=== PATIENT | male | born 1965 | race Caucasian/White ===

== ENCOUNTER 2020-02-25 10:14 | Emergency (ER) | payer SELFPAY ==
[2020-02-25 10:54] LABS: HEMOGLOBIN 14.1 g/dl (14.0-18.0); IMMATURE GRANULOCYTES 0.2 % (0.0-5.0); MEAN CELL VOLUME 99.8 fL CALC (80.0-100.0); MEAN CORPUSCULAR HGB 34.3 pG CALC (26.0-32.0); MEAN CORPUSCULAR HGB CONC 34.4 g/dL CAL (32.0-36.0); NEUT# 3.25 thou/uL (1.82-7.42); RED BLOOD COUNT 4.11 mill/uL (4.70-6.10); RED CELL DISTRI WIDTH 14.6 % (11.5-15.5)
[2020-02-25 11:13] LABS: ALBUMIN 4.2 g/dL (3.2-5.0); ALKALINE PHOSPHATASE 108 u/l (38-126); AMYLASE 62 u/l (30-110); ANION GAP 13 (6-22 (CALC)); BILIRUBIN, TOTAL 0.4 mg/dL (0.0-1.4); BUN 10 mg/dL (9-20); BUN/CREATININE RATIO 10 (12-20 (CALC)); CARBON DIOXIDE 20 mmol/l (22-30); CHLORIDE 108 mmol/l (95-108); CREATININE 0.9 mg/dL (0.7-1.3); GFR > 60 ML/MIN (>=60 (CALC)); GFR FOR AFR.AMER. > 60 ML/MIN (>=60 (CALC)); LIPASE 73 u/l (23-300); POTASSIUM 4.7 mmol/l (3.5-5.1); SGOT/AST 36 u/l (17-59); SODIUM 136 mmol/l (137-146); TOTAL PROTEIN 7.5 g/dL (6.3-8.2)
[2020-02-25] MEDS ORDERED: AMLODIPINE BESY10 MG PO (13:05)
[2020-02-25] MEDS ORDERED: PROVENTIL108 MCG/AC IN (13:05)
[2020-02-25 13:08] VITALS: BP 163/94
== END 2020-02-25 13:09 | disposition home or self-care (01) | DRG 392 ==
LOC: ED 10:14
DX: R10.11 Right upper quadrant pain (principal); J44.1 Chronic obstructive pulmonary disease with (acute) exacerbation; I10 Essential (primary) hypertension; T46.5X6A Underdosing of other antihypertensive drugs, initial encounter; F17.210 Nicotine dependence, cigarettes, uncomplicated; Z91.128 Patient's intentional underdosing of medication regimen for other reason; Z20.828 Contact with and (suspected) exposure to other viral communicable diseases
CPT/HCPCS: Q9967

== ENCOUNTER 2022-07-14 09:51 | Emergency (ER) | payer SELFPAY ==
[~2022-07-14] VITALS: Ht 175.3 cm; Wt 96.0 kg
[~2022-07-14 09:51] MED LIST: AMLODIPINE BESY10 MG PO; PROVENTIL108 MCG/AC IN
[2022-07-14] MEDS ORDERED: MOTRIN800 MG PO (12:02)
[2022-07-14] MEDS ORDERED: DOXYCYC MONO100 M3 PO (12:02)
[2022-07-14 12:16] VITALS: BP 136/84
== END 2022-07-14 12:20 | disposition home or self-care (01) | DRG 605 ==
LOC: ED 09:51
DX: S61.451A Open bite of right hand, initial encounter (principal); L03.113 Cellulitis of right upper limb; W55.01XA Bitten by cat, initial encounter

== ENCOUNTER 2023-02-25 14:55 | Emergency (ER) | payer SELFPAY ==
[2023-02-25] VITALS (8 sets, daily range): BP systolic 109–133; BP diastolic 69–96
[~2023-02-25] VITALS: Ht 175.3 cm; Wt 83.9 kg
[~2023-02-25 14:55] MED LIST changes: +DOXYCYC MONO100 M3 PO; +MOTRIN800 MG PO
[2023-02-25] MEDS ORDERED: VIBRAMYCIN100 M1 PO (21:44)
[2023-02-25] MEDS ORDERED: NAPROXEN500 MG PO (21:44)
== END 2023-02-25 17:12 | disposition left against medical advice (07) | DRG 556 ==
LOC: ED 14:55
DX: M25.562 Pain in left knee (principal); L03.114 Cellulitis of left upper limb; I10 Essential (primary) hypertension; J44.9 Chronic obstructive pulmonary disease, unspecified; F17.200 Nicotine dependence, unspecified, uncomplicated; Z53.29 Procedure and treatment not carried out because of patient's decision for other reasons

== ENCOUNTER 2023-02-25 21:03 | Emergency (ER) | payer SELFPAY ==
[~2023-02-25] VITALS: Ht 177.8 cm; Wt 97.0 kg
[2023-02-25] MEDS ORDERED: NAPROXEN500 MG PO (21:44)
[2023-02-25] MEDS ORDERED: VIBRAMYCIN100 M1 PO (21:44)
[2023-02-25 22:01] VITALS: BP 141/84
== END 2023-02-25 22:04 | disposition home or self-care (01) | DRG 556 ==
LOC: ED 21:03
DX: M25.562 Pain in left knee (principal); L03.114 Cellulitis of left upper limb; I10 Essential (primary) hypertension; J44.9 Chronic obstructive pulmonary disease, unspecified; F17.200 Nicotine dependence, unspecified, uncomplicated

== ENCOUNTER 2023-05-18 18:01 | Emergency (ER) | payer SELFPAY ==
[~2023-05-18] VITALS: Ht 177.8 cm; Wt 83.0 kg
[2023-05-18] VITALS (9 sets, daily range): BP systolic 88–127; BP diastolic 62–77
[~2023-05-18 18:01] MED LIST changes: +NAPROXEN500 MG PO; +VIBRAMYCIN100 M1 PO
[2023-05-18 18:19] LABS: BASO% 1.6 % (0-3); EOS% 0.6 % (0-8); HEMATOCRIT 41.4 % (39.0-50.0); HEMOGLOBIN 13.7 g/dl (14.0-18.0); IMMATURE GRANULOCYTES 0.1 % (0.0-5.0); LYMPH% 28.8 % (15-41); MEAN CORPUSCULAR HGB 36.8 pG CALC (26.0-32.0); MEAN CORPUSCULAR HGB CONC 33.1 g/dL CAL (32.0-36.0); NEUT# 4.28 thou/uL (1.82-7.42); NEUT% 60.9 % (42-76); RED BLOOD COUNT 3.72 mill/uL (4.70-6.10); RED CELL DISTRI WIDTH 14.3 % (11.5-15.5)
[2023-05-18 18:20] LABS: MEAN CELL VOLUME 111.3 fL CALC (80.0-100.0)
[2023-05-18 18:31] LABS: ALBUMIN 3.5 g/dL (3.2-5.0); POTASSIUM 4.6 mmol/l (3.5-5.1); TOTAL PROTEIN 6.5 g/dL (6.3-8.2)
[2023-05-18 18:32] LABS: BILIRUBIN, TOTAL 0.8 mg/dL (0.2-1.3); CREATININE 1.9 mg/dL (0.7-1.3)
== END 2023-05-18 19:50 | disposition left against medical advice (07) | DRG 312 ==
LOC: ED 18:01
PROVIDERS: Family Medicine
DX: R55 Syncope and collapse (principal); N17.9 Acute kidney failure, unspecified; F10.10 Alcohol abuse, uncomplicated; S00.81XA Abrasion of other part of head, initial encounter; I10 Essential (primary) hypertension; J44.9 Chronic obstructive pulmonary disease, unspecified; F17.210 Nicotine dependence, cigarettes, uncomplicated; Y90.7 Blood alcohol level of 200-239 mg/100 ml; W18.39XA Other fall on same level, initial encounter; Y92.009 Unspecified place in unspecified non-institutional (private) residence as the place of occurrence of the external cause; Z53.29 Procedure and treatment not carried out because of patient's decision for other reasons; Z20.822 Contact with and (suspected) exposure to COVID-19

== ENCOUNTER 2023-11-06 20:49 | Emergency (ER) | payer SELFPAY ==
[~2023-11-06] VITALS: Ht 177.8 cm; Wt 77.0 kg
[2023-11-06] VITALS (7 sets, daily range): BP systolic 69–114; BP diastolic 49–84
[~2023-11-06 20:49] MED LIST changes: +ALBUTERO2 XX; +FOLIC ACID1 M1 PO; +LEVAQUIN750 M1 PO; +MEDDOSEPAK PO; +PROTONIX40 M2 PO; +SYMBICORT1 AE1 IN; +TAB-A-VITE W/1 COMBO PO; +VITAMIN B-1100 M1 PO
[2023-11-06] MEDS ORDERED: SODIUM CHLORIDE 0.9% 1,000 ML IV ONE ×2 (21:35→23:15)
[2023-11-06 21:46] LABS: BASO% 1.4 % (0-3); EOS% 2.2 % (0-8); IMMATURE GRANULOCYTES 0.1 % (0.0-5.0); LYMPH% 58.4 % (15-41); MEAN CORPUSCULAR HGB 34.8 pG CALC (26.0-32.0); MEAN CORPUSCULAR HGB CONC 34.4 g/dL CAL (32.0-36.0); MONO% 9.1 % (2-13); NEUT# 2.21 thou/uL (1.82-7.42); NEUT% 28.8 % (42-76); RED BLOOD COUNT 4.17 mill/uL (4.70-6.10)
[2023-11-06 21:47] LABS: HEMATOCRIT 42.1 % (39.0-50.0); HEMOGLOBIN 14.5 g/dl (14.0-18.0)
[2023-11-06 21:53] LABS: ALBUMIN 3.6 g/dL (3.2-5.0); ANION GAP 15 (6-22 (CALC)); BILIRUBIN, TOTAL 0.3 mg/dL (0.2-1.3); BUN 9 mg/dL (9-20); BUN/CREATININE RATIO 7 (12-20 (CALC)); CARBON DIOXIDE 21 mmol/l (22-30); CHLORIDE 98 mmol/l (95-108); CREATININE 1.2 mg/dL (0.7-1.3); GFR FOR AFR.AMER. > 60 ML/MIN (>=60 (CALC)); GFR OTHER RACES > 60 ML/MIN (>=60 (CALC)); POTASSIUM 4.2 mmol/l (3.5-5.1); SGOT/AST 79 u/l (17-59); SODIUM 129 mmol/l (137-146); TOTAL PROTEIN 6.3 g/dL (6.3-8.2)
[2023-11-06 22:03] LABS: ALKALINE PHOSPHATASE 122 u/l (38-126)
[2023-11-06 22:10] LABS: URINE BILIRUBIN - DIPSTICK Negative (NEGATIVE); URINE BLOOD DIPSTICK Negative (NEGATIVE); URINE GLUCOSE - DIPSTICK Negative (NEGATIVE); URINE KETONE Negative (NEGATIVE); URINE LEUK ESTERASE Negative (NEGATIVE); URINE NITRITE - DIPSTICK Negative (Negative); URINE PH 5.5 (4.5-8.0); URINE PROTEIN - DIPSTICK Negative (NEG-TRACE); URINE SPECIFIC GRAVITY <=1.005; URINE UROBILINOGEN - DIPSTICK 0.2 E.U./dL (0.2)
[2023-11-06 22:14] LABS: URINE COLOR Yellow
[2023-11-06 22:28] LABS: D-DIMER 0.55 mg/L (0.19-0.60)
[2023-11-06 22:29] LABS: PROTHROMBIN TIME 9.4 SECONDS (9.0-12.5)
[2023-11-06] MEDS ORDERED: THIAMINE HCL 100 MG/ML 2ML VIAL IM ONE (23:15)
[2023-11-07] VITALS (12 sets, daily range): BP systolic 105–137; BP diastolic 53–81
[2023-11-07] MEDS ORDERED: SODIUM CHLORIDE 0.9% 1,000 ML IV ONE (02:30)
== END 2023-11-07 11:56 | disposition home or self-care (01) | DRG 897 ==
LOC: ED 20:49
PROVIDERS: Family Medicine
DX: F10.229 Alcohol dependence with intoxication, unspecified (principal); Y90.8 Blood alcohol level of 240 mg/100 ml or more; I10 Essential (primary) hypertension; E11.9 Type 2 diabetes mellitus without complications; J44.9 Chronic obstructive pulmonary disease, unspecified

== ENCOUNTER 2024-06-01 16:55 | Emergency (ER) | payer SELFPAY ==
[~2024-06-01] VITALS: Ht 177.8 cm; Wt 163.0 kg
[2024-06-01 17:02] VITALS: BP 125/91
[2024-06-01] MEDS ORDERED: IPRATROPIUM-Albuterol 0.5MG-2.5MG/3 ML NEB ONE (17:05)
[2024-06-01] MEDS ORDERED: SODIUM CHLORIDE 0.9% 1,000 ML IV ONE (17:05)
[2024-06-01 17:16] LABS: BASO% 1.9 % (0-3); EOS% 1.3 % (0-8); HEMATOCRIT 37.7 % (39.0-50.0); HEMOGLOBIN 12.5 g/dl (14.0-18.0); IMMATURE GRANULOCYTES 0.1 % (0.0-5.0); LYMPH% 46.5 % (15-41); MEAN CELL VOLUME 107.4 fL CALC (80.0-100.0); MEAN CORPUSCULAR HGB 35.6 pG CALC (26.0-32.0); MEAN CORPUSCULAR HGB CONC 33.2 g/dL CAL (32.0-36.0); MONO% 5.3 % (2-13); NEUT# 3.72 thou/uL (1.82-7.42); NEUT% 44.9 % (42-76); RED BLOOD COUNT 3.51 mill/uL (4.70-6.10); RED CELL DISTRI WIDTH 15.1 % (11.5-15.5)
[2024-06-01 17:27] LABS: ALBUMIN 3.8 g/dL (3.2-5.0); BILIRUBIN, TOTAL 0.3 mg/dL (0.2-1.3); POTASSIUM 4.7 mmol/l (3.5-5.1); TOTAL PROTEIN 6.8 g/dL (6.3-8.2)
[2024-06-01 17:31] VITALS: BP 125/91
== END 2024-06-01 17:20 | disposition left against medical advice (07) | DRG 894 ==
LOC: ED 16:55
PROVIDERS: Nurse Practitioner Family
DX: F10.10 Alcohol abuse, uncomplicated (principal); I10 Essential (primary) hypertension; J44.9 Chronic obstructive pulmonary disease, unspecified; E11.9 Type 2 diabetes mellitus without complications; F17.200 Nicotine dependence, unspecified, uncomplicated; Z53.29 Procedure and treatment not carried out because of patient's decision for other reasons

== ENCOUNTER 2024-08-14 18:07 | Emergency (ER) | payer SELFPAY ==
[~2024-08-14] VITALS: Ht 177.8 cm; Wt 87.0 kg
[2024-08-14] VITALS (7 sets, daily range): BP systolic 81–109; BP diastolic 55–78
[2024-08-14] MEDS ORDERED: IPRATROPIUM-Albuterol 0.5MG-2.5MG/3 ML NEB ONE ×2 (18:15)
[2024-08-14] MEDS ORDERED: methylPREDNISolone SODIUM SUCC 125 MG/2 ML SDV IV ONE (18:15)
[2024-08-14 19:00] LABS: BASO% 1.9 % (0-3); EOS% 1.4 % (0-8); HEMATOCRIT 33.9 % (39.0-50.0); HEMOGLOBIN 11.6 g/dl (14.0-18.0); IMMATURE GRANULOCYTES 0.2 % (0.0-5.0); LYMPH% 62.9 % (15-41); MEAN CELL VOLUME 103.4 fL CALC (80.0-100.0); MEAN CORPUSCULAR HGB 35.4 pG CALC (26.0-32.0); MEAN CORPUSCULAR HGB CONC 34.2 g/dL CAL (32.0-36.0); MONO% 7.6 % (2-13); NEUT# 1.48 thou/uL (1.82-7.42); RED BLOOD COUNT 3.28 mill/uL (4.70-6.10); RED CELL DISTRI WIDTH 13.2 % (11.5-15.5)
[2024-08-14 19:03] LABS: URINE BILIRUBIN - DIPSTICK Negative (NEGATIVE); URINE BLOOD DIPSTICK Negative (NEGATIVE); URINE GLUCOSE - DIPSTICK Negative (NEGATIVE); URINE KETONE Negative (NEGATIVE); URINE LEUK ESTERASE Negative (NEGATIVE); URINE NITRITE - DIPSTICK Negative (Negative); URINE PROTEIN - DIPSTICK Negative (NEG-TRACE); URINE UROBILINOGEN - DIPSTICK 0.2 E.U./dL (0.2)
[2024-08-14 19:04] LABS: URINE COLOR Yellow
[2024-08-14 19:14] LABS: ALBUMIN 3.6 g/dL (3.2-5.0); BILIRUBIN, TOTAL 0.4 mg/dL (0.2-1.3); CREATININE 0.9 mg/dL (0.7-1.3); POTASSIUM 3.9 mmol/l (3.5-5.1); TOTAL PROTEIN 6.8 g/dL (6.3-8.2)
[2024-08-14] MEDS ORDERED: MULTIPLE VITAMIN 10 ML,THIAMINE HCL 100 MG in SODIUM CHLORIDE 0.9% 1,000 ML IV ONE (19:55)
[2024-08-14] MEDS ORDERED: AZITHROMYCIN 250 MG/TAB PO ONE (19:55)
[2024-08-14] MEDS ORDERED: ALBUTEROL SULFATE 8 GM INH IN ONE (19:55)
[2024-08-14] MEDS ORDERED: PREDNISONE20 MG PO (19:56)
[2024-08-14] MEDS ORDERED: ZPAK PO (20:17)
== END 2024-08-14 22:20 | disposition home or self-care (01) | DRG 191 ==
LOC: ED 18:07
PROVIDERS: Nurse Practitioner
DX: J44.1 Chronic obstructive pulmonary disease with (acute) exacerbation (principal); Z59.00 Homelessness unspecified; I10 Essential (primary) hypertension; E11.9 Type 2 diabetes mellitus without complications; F17.200 Nicotine dependence, unspecified, uncomplicated; F10.129 Alcohol abuse with intoxication, unspecified; Y90.8 Blood alcohol level of 240 mg/100 ml or more

== ENCOUNTER 2024-10-21 16:39 | Emergency (ER) | payer SELFPAY ==
[~2024-10-21] VITALS: Ht 177.8 cm; Wt 73.0 kg
[2024-10-21] VITALS (18 sets, daily range): BP systolic 84–126; BP diastolic 45–89
[~2024-10-21 16:39] MED LIST changes: +PREDNISONE20 MG PO; +ZPAK PO
[2024-10-21] MEDS ORDERED: methylPREDNISolone SODIUM SUCC 125 MG/2 ML SDV IV ONE (16:45)
[2024-10-21] MEDS ORDERED: IPRATROPIUM-Albuterol 0.5MG-2.5MG/3 ML NEB ONE (16:45)
[2024-10-21] MEDS ORDERED: SODIUM CHLORIDE 0.9% 1,000 ML IV ONE ×2 (16:55→19:55)
[2024-10-21 17:02] LABS: BASO% 2.2 % (0-3); EOS% 2.4 % (0-8); HEMATOCRIT 34.4 % (39.0-50.0); HEMOGLOBIN 11.4 g/dl (14.0-18.0); IMMATURE GRANULOCYTES 0.1 % (0.0-5.0); LYMPH% 41.9 % (15-41); MEAN CELL VOLUME 105.8 fL CALC (80.0-100.0); MEAN CORPUSCULAR HGB 35.1 pG CALC (26.0-32.0); MEAN CORPUSCULAR HGB CONC 33.1 g/dL CAL (32.0-36.0); MONO% 5.5 % (2-13); NEUT# 4.06 thou/uL (1.82-7.42); NEUT% 47.9 % (42-76); RED BLOOD COUNT 3.25 mill/uL (4.70-6.10)
[2024-10-21 17:19] LABS: ALBUMIN 3.4 g/dL (3.2-5.0); ALKALINE PHOSPHATASE 141 u/l (38-126); BUN 6 mg/dL (9-20); BUN/CREATININE RATIO 7 (12-20 (CALC)); CHLORIDE 105 mmol/l (95-108); CREATININE 0.9 mg/dL (0.7-1.3); ESTIMATED GFR 99 ML/MIN (>=90 (CALC)); POTASSIUM 4.2 mmol/l (3.5-5.1); SGOT/AST 46 u/l (17-59); SODIUM 132 mmol/l (137-146); TOTAL PROTEIN 6.6 g/dL (6.3-8.2)
[2024-10-21 17:21] LABS: URINE BLOOD DIPSTICK Negative (NEGATIVE); URINE GLUCOSE - DIPSTICK Negative (NEGATIVE); URINE KETONE Trace mg/dL (NEGATIVE); URINE LEUK ESTERASE Negative (NEGATIVE); URINE PH 5.5 (4.5-8.0); URINE PROTEIN - DIPSTICK Negative (NEG-TRACE)
[2024-10-21 17:23] LABS: URINE COLOR Amber; URINE NITRITE - DIPSTICK Positive (Negative)
[2024-10-21 17:28] LABS: URINE HYALINE CAST MANY lpf (NONE-RARE); URINE RBC 0-2 RBC/hpf (0-5); URINE TRANSITIONAL EPI. CELLS FEW hpf; URINE WBC 0-2 WBC/hpf (0-5)
[2024-10-21 17:29] LABS: ANION GAP 14 (6-22 (CALC)); BILIRUBIN, TOTAL 0.8 mg/dL (0.2-1.3); CARBON DIOXIDE 17 mmol/l (22-30)
[2024-10-21 17:30] LABS: ETHYL ALCOHOL 307 mg/dl (0-30)
[2024-10-21] MEDS ORDERED: KETOROLAC TROMETHAMINE 15 MG/ML SDV IV ONE (18:25)
[2024-10-21] MEDS ORDERED: ORPHENADRINE CITRATE 30 MG/ML AMP IV ONE (18:25)
[2024-10-21] MEDS ORDERED: AZITHROMYCIN 250 MG/TAB PO ONE (20:10)
[2024-10-21] MEDS ORDERED: MORPHINE SULFATE 4 MG/ML VIAL IV ONE (21:05)
[2024-10-22] VITALS (10 sets, daily range): BP systolic 125–153; BP diastolic 87–116
== END 2024-10-22 02:12 | disposition home or self-care (01) | DRG 191 ==
LOC: ED 16:39
PROVIDERS: Nurse Practitioner
DX: J44.1 Chronic obstructive pulmonary disease with (acute) exacerbation (principal); F10.229 Alcohol dependence with intoxication, unspecified; Y90.8 Blood alcohol level of 240 mg/100 ml or more; I10 Essential (primary) hypertension; E11.9 Type 2 diabetes mellitus without complications; Z72.0 Tobacco use; Z20.822 Contact with and (suspected) exposure to COVID-19; Z59.00 Homelessness unspecified
CPT/HCPCS: J1885; J2360

== ENCOUNTER 2024-11-15 19:02 | Emergency (ER) | payer SELFPAY ==
[~2024-11-15] VITALS: Ht 177.8 cm; Wt 75.0 kg
[2024-11-15] VITALS (12 sets, daily range): BP systolic 78–108; BP diastolic 43–67
[2024-11-15] MEDS ORDERED: KETOROLAC TROMETHAMINE 30 MG/ML SDV IV ONE (19:15)
[2024-11-15] MEDS ORDERED: IPRATROPIUM-Albuterol 0.5MG-2.5MG/3 ML NEB ONE (19:15)
[2024-11-15] MEDS ORDERED: ASPIRIN 81 MG/TAB PO ONE (19:15)
[2024-11-15] MEDS ORDERED: methylPREDNISolone SODIUM SUCC 125 MG/2 ML SDV IV ONE (19:15)
[2024-11-15] MEDS ORDERED: SODIUM CHLORIDE 0.9% 1,000 ML IV ONE (19:20)
[2024-11-15 19:35] LABS: BASO% 2.1 % (0-3); EOS% 1.9 % (0-8); HEMATOCRIT 32.1 % (39.0-50.0); HEMOGLOBIN 10.8 g/dl (14.0-18.0); MEAN CELL VOLUME 105.9 fL CALC (80.0-100.0); MEAN CORPUSCULAR HGB 35.6 pG CALC (26.0-32.0); MEAN CORPUSCULAR HGB CONC 33.6 g/dL CAL (32.0-36.0); MONO% 5.9 % (2-13); NEUT# 1.43 thou/uL (1.82-7.42); NEUT% 27.1 % (42-76); RED BLOOD COUNT 3.03 mill/uL (4.70-6.10); RED CELL DISTRI WIDTH 14.6 % (11.5-15.5)
[2024-11-15 19:48] LABS: ALKALINE PHOSPHATASE 155 u/l (38-126); ANION GAP 16 (6-22 (CALC)); BUN 11 mg/dL (9-20); BUN/CREATININE RATIO 10 (12-20 (CALC)); CARBON DIOXIDE 20 mmol/l (22-30); CHLORIDE 103 mmol/l (95-108); ESTIMATED GFR 87 ML/MIN (>=90 (CALC)); LIPASE 141 u/l (23-300); POTASSIUM 3.9 mmol/l (3.5-5.1); SODIUM 135 mmol/l (137-146); TOTAL PROTEIN 5.9 g/dL (6.3-8.2)
[2024-11-15 19:49] LABS: BILIRUBIN, TOTAL 0.4 mg/dL (0.2-1.3); SGOT/AST 105 u/l (17-59)
[2024-11-15] MEDS ORDERED: MULTIPLE VITAMIN 10 ML,THIAMINE HCL 100 MG in DEXTROSE 5% / 0.9% NACL 1,000 ML IV ONE (21:20)
[2024-11-15] MEDS ORDERED: LACTATED RINGER'S 1,000 ML IV ONE (23:20)
[2024-11-15] MEDS ORDERED: MULTIPLE VITAMIN IV ONE (23:48)
[2024-11-15] MEDS ORDERED: THIAMINE HCL 100 MG/ML 2ML VIAL ONE (23:48)
[2024-11-16] VITALS (17 sets, daily range): BP systolic 94–146; BP diastolic 61–99
[2024-11-16] MEDS ORDERED: SODIUM CHLORIDE 0.9% 1,000 ML IV ONE (00:27)
[2024-11-16] MEDS ORDERED: LACTATED RINGER'S 1,000 ML IV ONE (04:05)
[2024-11-16] MEDS ORDERED: Pantoprazole Sodium 40 MG VIAL (Protonix) IV ONE (07:15)
[2024-11-16] MEDS ORDERED: OMEPRAZOLE DR40 MG PO (08:33)
== END 2024-11-16 08:40 | disposition home or self-care (01) | DRG 190 ==
LOC: ED 19:02
PROVIDERS: Family Medicine
DX: J44.1 Chronic obstructive pulmonary disease with (acute) exacerbation (principal); J12.9 Viral pneumonia, unspecified; J44.0 Chronic obstructive pulmonary disease with (acute) lower respiratory infection; F10.129 Alcohol abuse with intoxication, unspecified; Y90.8 Blood alcohol level of 240 mg/100 ml or more; I10 Essential (primary) hypertension; E11.9 Type 2 diabetes mellitus without complications; Z72.0 Tobacco use; Z20.822 Contact with and (suspected) exposure to COVID-19
CPT/HCPCS: J2470; J3411

== ENCOUNTER 2024-11-19 14:39 | Emergency (ER) | payer SELFPAY ==
[~2024-11-19] VITALS: Ht 177.8 cm; Wt 74.0 kg
[~2024-11-19 14:39] MED LIST changes: +OMEPRAZOLE DR40 MG PO
[2024-11-19 14:48] VITALS: BP 113/58
[2024-11-19 15:00] VITALS: BP 113/67
[2024-11-19] MEDS ORDERED: IPRATROPIUM-Albuterol 0.5MG-2.5MG/3 ML NEB ONE ×3 (15:00)
[2024-11-19] MEDS ORDERED: methylPREDNISolone SODIUM SUCC 125 MG/2 ML SDV IV ONE (15:00)
[2024-11-19 15:15] VITALS: BP 103/60
[2024-11-19 15:22] LABS: BASO% 1.4 % (0-3); EOS% 0.8 % (0-8); HEMATOCRIT 33.8 % (39.0-50.0); HEMOGLOBIN 11.5 g/dl (14.0-18.0); IMMATURE GRANULOCYTES 0.2 % (0.0-5.0); LYMPH% 52.3 % (15-41); MEAN CELL VOLUME 105.3 fL CALC (80.0-100.0); MEAN CORPUSCULAR HGB 35.8 pG CALC (26.0-32.0); MONO% 6.5 % (2-13); NEUT# 1.91 thou/uL (1.82-7.42); NEUT% 38.8 % (42-76); RED BLOOD COUNT 3.21 mill/uL (4.70-6.10); RED CELL DISTRI WIDTH 15.4 % (11.5-15.5)
[2024-11-19 15:36] LABS: ALBUMIN 3.2 g/dL (3.2-5.0); ALKALINE PHOSPHATASE 163 u/l (38-126); BUN 9 mg/dL (9-20); BUN/CREATININE RATIO 12 (12-20 (CALC)); CHLORIDE 103 mmol/l (95-108); CREATININE 0.8 mg/dL (0.7-1.3); ESTIMATED GFR 103 ML/MIN (>=90 (CALC)); POTASSIUM 3.9 mmol/l (3.5-5.1); SGOT/AST 163 u/l (17-59); SODIUM 136 mmol/l (137-146)
[2024-11-19 15:37] LABS: ANION GAP 12 (6-22 (CALC)); BILIRUBIN, TOTAL 0.9 mg/dL (0.2-1.3); CARBON DIOXIDE 25 mmol/l (22-30)
[2024-11-19] MEDS ORDERED: ALUM & MAG HYDROX-SIMETHICONE 30 ML PO ONE (16:35)
[2024-11-19] MEDS ORDERED: LIDOCAINE VISCOUS 2% 15 ML UDC PO ONE (16:35)
[2024-11-19] MEDS ORDERED: FAMOTIDINE 10MG/ML 2ML SDV IV ONE (16:35)
[2024-11-19] MEDS ORDERED: Pantoprazole Sodium 40 MG VIAL (Protonix) IV ONE (16:35)
[2024-11-19] MEDS ORDERED: PEPCID20 MG PO (17:35)
[2024-11-19 17:57] VITALS: BP 103/60
== END 2024-11-19 18:01 | disposition home or self-care (01) | DRG 392 ==
LOC: ED 14:39
PROVIDERS: Nurse Practitioner
DX: K29.70 Gastritis, unspecified, without bleeding (principal); K21.9 Gastro-esophageal reflux disease without esophagitis; I10 Essential (primary) hypertension; E11.9 Type 2 diabetes mellitus without complications; J44.9 Chronic obstructive pulmonary disease, unspecified; F17.210 Nicotine dependence, cigarettes, uncomplicated; Z20.822 Contact with and (suspected) exposure to COVID-19
CPT/HCPCS: J2470

== ENCOUNTER 2024-11-26 20:39 | Emergency (ER) | payer SELFPAY ==
[~2024-11-26] VITALS: Ht 177.8 cm; Wt 81.0 kg
[~2024-11-26 20:39] MED LIST changes: +PEPCID20 MG PO
[2024-11-26] MEDS ORDERED: SUCRALFATE 1 GM/TAB PO ONE (20:55)
[2024-11-26] MEDS ORDERED: FAMOTIDINE 20 MG/TAB PO ONE (20:55)
[2024-11-26] MEDS ORDERED: ASPIRIN 81 MG/TAB PO ONE (20:55)
[2024-11-26] MEDS ORDERED: NITROGLYCERIN 2% OINT UD 1 GM/PAK TD ONE (20:55)
[2024-11-26 21:00] VITALS: BP 86/63
[2024-11-26 21:08] VITALS: BP 108/69
[2024-11-26 21:21] LABS: BASO% 1.4 % (0-3); EOS% 0.5 % (0-8); HEMATOCRIT 30.4 % (39.0-50.0); HEMOGLOBIN 10.3 g/dl (14.0-18.0); IMMATURE GRANULOCYTES 0.1 % (0.0-5.0); LYMPH% 52.4 % (15-41); MEAN CELL VOLUME 107.4 fL CALC (80.0-100.0); MEAN CORPUSCULAR HGB 36.4 pG CALC (26.0-32.0); MEAN CORPUSCULAR HGB CONC 33.9 g/dL CAL (32.0-36.0); MONO% 7.4 % (2-13); NEUT# 3.06 thou/uL (1.82-7.42); NEUT% 38.2 % (42-76); RED BLOOD COUNT 2.83 mill/uL (4.70-6.10); RED CELL DISTRI WIDTH 16.7 % (11.5-15.5)
[2024-11-26 21:32] LABS: ALBUMIN 2.9 g/dL (3.2-5.0); ALKALINE PHOSPHATASE 208 u/l (38-126); ANION GAP 14 (6-22 (CALC)); BUN 14 mg/dL (9-20); BUN/CREATININE RATIO 9 (12-20 (CALC)); CARBON DIOXIDE 22 mmol/l (22-30); CHLORIDE 110 mmol/l (95-108); CPK 69 u/l (55-170); CREATININE 1.5 mg/dL (0.7-1.3); ESTIMATED GFR 54 ML/MIN (>=90 (CALC)); LIPASE 381 u/l (23-300); MAGNESIUM 1.9 mg/dL (1.6-2.3); POTASSIUM 3.8 mmol/l (3.5-5.1); SGOT/AST 142 u/l (17-59); SODIUM 142 mmol/l (137-146); TOTAL PROTEIN 5.7 g/dL (6.3-8.2)
[2024-11-26 21:38] LABS: ACT PARTIAL THROMBO TIME 24.4 SECONDS (20.0-32.5); D-DIMER 1.46 mg/L (0.19-0.60)
[2024-11-26 21:40] LABS: BILIRUBIN, TOTAL 0.4 mg/dL (0.2-1.3)
[2024-11-26 21:41] LABS: ETHYL ALCOHOL 404 mg/dl (0-30)
[2024-11-26 22:02] LABS: TSH, 3RD GENERATION 5.96 uIU/mL (0.47 - 4.68)
[2024-11-26 22:45] LABS: URINE BLOOD DIPSTICK Negative (NEGATIVE); URINE GLUCOSE - DIPSTICK Negative (NEGATIVE); URINE KETONE 15 mg/dL (NEGATIVE); URINE LEUK ESTERASE Negative (NEGATIVE); URINE NITRITE - DIPSTICK Negative (Negative); URINE PROTEIN - DIPSTICK 30 mg/dL (NEG-TRACE); URINE SPECIFIC GRAVITY 1.015
[2024-11-26 22:47] LABS: URINE COLOR Yellow
[2024-11-26 22:52] LABS: URINE BACTERIA FEW hpf; URINE EPITHELIAL CELLS MANY EPI/hpf (0-FEW); URINE MUCUS MODERATE hpf (NONE-FEW)
[2024-11-26 22:54] LABS: URINE COARSE GRANULAR CAST FEW lpf; URINE FINE GRAN CAST MODERATE lpf; URINE HYALINE CAST MANY lpf (NONE-RARE)
[2024-11-27] MEDS ORDERED: PREDNISONE20 MG PO (00:37)
[2024-11-27 08:12] VITALS: BP 108/69
== END 2024-11-27 08:10 | disposition left against medical advice (07) | DRG 313 ==
LOC: ED 20:39 → ED-I 21:17 → ED 21:17 → ED-I 11-27 00:20 → ED 11-27 08:10
PROVIDERS: Internal Medicine
DX: R07.9 Chest pain, unspecified (principal); E07.9 Disorder of thyroid, unspecified; F10.129 Alcohol abuse with intoxication, unspecified; Y90.9 Presence of alcohol in blood, level not specified; I10 Essential (primary) hypertension; E11.9 Type 2 diabetes mellitus without complications; J44.9 Chronic obstructive pulmonary disease, unspecified; K44.9 Diaphragmatic hernia without obstruction or gangrene; I25.2 Old myocardial infarction; Z72.0 Tobacco use; Z53.29 Procedure and treatment not carried out because of patient's decision for other reasons

== ENCOUNTER 2024-11-27 20:31 | Emergency (ER) | payer SELFPAY ==
[~2024-11-27] VITALS: Ht 177.8 cm; Wt 81.0 kg
[2024-11-27 20:47] VITALS: BP 123/88
[2024-11-27] MEDS ORDERED: Diph, Acellular Pertussis, Tet 0.5 ML/VIAL (Tdap) SDV IM ONE (20:50)
[2024-11-27] MEDS ORDERED: MULTIPLE VITAMIN 10 ML,THIAMINE HCL 100 MG in DEXTROSE 5% / 0.9% NACL 1,000 ML IV ONE (20:50)
[2024-11-27 21:00] VITALS: BP 145/96
[2024-11-27 21:03] LABS: BASO% 1.3 % (0-3); EOS% 0.6 % (0-8); HEMATOCRIT 30.6 % (39.0-50.0); HEMOGLOBIN 10.3 g/dl (14.0-18.0); IMMATURE GRANULOCYTES 0.3 % (0.0-5.0); LYMPH% 55.3 % (15-41); MEAN CORPUSCULAR HGB CONC 33.7 g/dL CAL (32.0-36.0); MONO% 6.8 % (2-13); NEUT# 2.41 thou/uL (1.82-7.42); NEUT% 35.7 % (42-76); RED BLOOD COUNT 2.86 mill/uL (4.70-6.10); RED CELL DISTRI WIDTH 16.6 % (11.5-15.5)
[2024-11-27 21:13] LABS: CREATININE 0.8 mg/dL (0.7-1.3); POTASSIUM 4.2 mmol/l (3.5-5.1); TOTAL PROTEIN 5.9 g/dL (6.3-8.2)
[2024-11-27 21:22] LABS: BILIRUBIN, TOTAL 0.6 mg/dL (0.2-1.3)
[2024-11-27] MEDS ORDERED: SODIUM CHLORIDE 0.9% 1,000 ML IV ONE (22:55)
[2024-11-27 23:35] LABS: URINE BILIRUBIN - DIPSTICK Negative (NEGATIVE); URINE BLOOD DIPSTICK Negative (NEGATIVE); URINE GLUCOSE - DIPSTICK Negative (NEGATIVE); URINE KETONE Negative (NEGATIVE); URINE LEUK ESTERASE Negative (NEGATIVE); URINE NITRITE - DIPSTICK Negative (Negative); URINE PROTEIN - DIPSTICK Negative (NEG-TRACE)
[2024-11-27 23:38] LABS: URINE COLOR Yellow
== END 2024-11-28 08:44 | disposition home or self-care (01) | DRG 125 ==
LOC: ED 20:31
PROVIDERS: Family Medicine
PROC: 0HQ1XZZ Repair Face Skin, External Approach (ICD-10-PCS; principal; 2024-11-27)
DX: S01.112A Laceration without foreign body of left eyelid and periocular area, initial encounter (principal); F10.129 Alcohol abuse with intoxication, unspecified; Y90.8 Blood alcohol level of 240 mg/100 ml or more; I10 Essential (primary) hypertension; E11.9 Type 2 diabetes mellitus without complications; J44.9 Chronic obstructive pulmonary disease, unspecified; W19.XXXA Unspecified fall, initial encounter; Z72.0 Tobacco use
CPT/HCPCS: 90715; J3411